=== PATIENT | female | born 1995 | race Hispanic/Latino ===

== ENCOUNTER 2017-05-01 15:33 | Emergency (ER) | payer MEDICAID ==
[2017-05-01 16:00] VITALS: BP 118/75; PULSE 100; RESP 18; TEMP 98.2; O2SAT 100
--- NOTE | 2017-05-01 16:34 | ED PDOC ---
Lower Extremity Pain/Injury Time Seen by Provider: 05/01/17 16:06 Chief Complaint (Nursing): Lower Extremity Problem/Injury Chief Complaint (Provider): Lower Extremity Problem/Injury History Per: Patient History/Exam Limitations: no limitations Onset/Duration Of Symptoms: Days (x2) Additional Complaint(s): Ellen Hook, 21 year old female presents to the ED for a right ankle injury occurring 2 days prior to arrival. The patient states as she was coming down her pool ladder, she twisted her right ankle and has been having swelling there ever since. She denies numbness, tingling, and any previous history of similar injury. PMD: Non [facility] Provider Past Medical History Reviewed: Historical Data, Nursing Documentation, Vital Signs Vital Signs: Last Vital Signs Temp 98.2 F 05/01/17 15:58 Pulse 100 H 05/01/17 15:58 Resp 18 05/01/17 15:58 BP 118/75 05/01/17 15:58 Pulse Ox 100 05/01/17 15:58 - Medical History PMH: No Chronic Diseases - Family History Family History: States: Unknown Family Hx - Social History Current smoker - smoking cessation education provided: No Ex-Smoker (has not smoked in the last 12 months): No Alcohol: None Drugs: Denies - Allergies Allergies/Adverse Reactions: Allergies Allergy/AdvReac Type Severity Reaction Status Date / Time No Known Allergies Allergy Verified 05/01/17 15:58 Review of Systems ROS Statement: Except As Marked, All Systems Reviewed And Found Negative Musculoskeletal: Positive for: Foot Pain (right ankle swelling ) Neurological: Negative for: Numbness (and no tingling ) Physical Exam - Reviewed Nursing Documentation Reviewed: Yes Vital Signs Reviewed: Yes - Physical Exam Appears: Positive for: Well, Non-toxic, No Acute Distress Head Exam: Positive for: ATRAUMATIC, NORMAL INSPECTION, NORMOCEPHALIC Pulses-Dorsalis Pedis (L): 2+ Pulses-Dorsalis Pedis (R): 2+ Extremity: Positive for: Tenderness (mild tenderness to lateral malleolus on right ankle ), Capillary Refill (<2 seconds ), Swelling (mild swelling to lateral malleolus on right ankle ). Negative for: Deformity (to right ankle ), Other (no foot tenderness ) - ECG O2 Sat by Pulse Oximetry: 100 (RA) Pulse Ox Interpretation: Normal - Radiology X-Ray: Interpreted by Me ([facility] ankle x-ray) X-Ray Interpretation: No Acute Disease - Progress ED Course And Treament: Ankle immobilized in aircast ankle splint applied by lead pharmacy technician Yehuda). Medical Decision Making Medical Decision Making: Impression: right ankle injury Plan: * Ankle right 3 views Routine [RAD] Stat * Reevaluation Scribe Attestation: Documented by Leonor Headley, acting as a scribe for Roly Vu PA-C. Provider Scribe Attestation: All medical record entries made by the Scribe were at my direction and personally dictated by me. I have reviewed the chart and agree that the record accurately reflects my personal performance of the history, physical exam, medical decision making, and the department course for this patient. I have also personally directed, reviewed, and agree with the discharge instructions and disposition. Disposition - Clinical Impression Clinical Impression: Ankle injury - Patient ED Disposition Is Patient to be Admitted: No - Disposition Referrals: [facility] [Outside] [facility] [Outside] Disposition: Routine/Home Disposition Time: 16:43 Condition: STABLE Instructions: Ankle Sprain (ED), Ankle Stirrup Splint (ED), Crutch Instructions (ED) Print Language: BRAZILIAN
--- NOTE | 2017-05-02 14:53 | RAD ---
PROCEDURE: Right Ankle Radiographs. HISTORY: trauma COMPARISON: None FINDINGS: BONES: Normal. No fracture. JOINTS: Normal. No osteoarthritis. Ankle mortise maintained. Talar dome intact SOFT TISSUES: Lateral soft tissue swelling, nonspecific. OTHER FINDINGS: None. IMPRESSION: No fracture. Lateral soft tissue swelling
== END 2017-05-01 19:36 | disposition home or self-care (01) ==
LOC: H.ER 15:33
DX: S99.911A Unspecified injury of right ankle, initial encounter (principal); Z87.891 Personal history of nicotine dependence; X50.1XXA Overexertion from prolonged static or awkward postures, initial encounter; Y93.89 Activity, other specified; Y92.9 Unspecified place or not applicable